=== PATIENT | male | born 1955 | race Caucasian/White ===

== ENCOUNTER 2024-01-27 11:06 | Day surgery (SDC) | payer MEDICARE, BC ==
[2024-01-26 16:56] VITALS: BMI 31.2
[2024-01-27] MEDS ORDERED: Ketorolac Tromethamine 30 MG (1 mL) VIAL ONE (11:32)
[2024-01-27] MEDS ORDERED: Sodium Chloride 0.9% 100 ML ONE (11:33)
[2024-01-27] MEDS ORDERED: Acetaminophen 500 MG TAB ONE (11:33)
[2024-01-27] MEDS ORDERED: CEFAZOLIN 2 GM VIAL ONE (11:33)
[2024-01-27] MEDS ORDERED: Acetaminophen 325 MG (10.15 ML) UDCUP ONE ×2 (11:40→11:41)
[2024-01-27] MEDS ORDERED: fentaNYL 50 mcg/mL 1 mL Vial ONE ×2 (12:32→13:42)
[2024-01-27] MEDS ORDERED: Lidocaine 2% PF 5 ML VIAL ONE (12:32)
[2024-01-27] MEDS ORDERED: PROPOFOL 20 ML ONE (12:32)
[2024-01-27] MEDS ORDERED: Bupivacaine 0.25% HCL 30 ML VIAL ONE (12:36)
[2024-01-27] MEDS ORDERED: EPINEPHrine 1 MG/ML VIAL ONE (12:36)
[2024-01-27] MEDS ORDERED: Ondansetron PF 4 MG/2 ML Vial ONE (13:51)
== END 2024-01-27 15:38 | disposition home or self-care (01) ==
LOC: SDC 11:06
PROVIDERS: ATTEND Specialist
PROC: 0H96X0Z Drainage of Back Skin with Drainage Device, External Approach (ICD-10-PCS; principal; 2024-01-27)
DX: T79.2XXA Traumatic secondary and recurrent hemorrhage and seroma, initial encounter (principal); W19.XXXA Unspecified fall, initial encounter
CPT/HCPCS: 10140; A6258; J0171; J3010; J0665; J1885; J2001; J2405; J2704; J3490

== ENCOUNTER 2024-02-12 13:54 | Outpatient (CLI) | payer MEDICARE, BC | END 2024-02-12 13:55 | disposition home or self-care (01) | LOC: CT 13:54 | PROVIDERS: ATTEND Surgery | DX: S22.018D Other fracture of first thoracic vertebra, subsequent encounter for fracture with routine healing (principal); S22.028D Other fracture of second thoracic vertebra, subsequent encounter for fracture with routine healing; S22.068D Other fracture of T7-T8 thoracic vertebra, subsequent encounter for fracture with routine healing; S24 Injury of nerves and spinal cord at thorax level | CPT/HCPCS: 72128 ==

== ENCOUNTER 2025-10-21 09:04 | Outpatient (CLI) | payer MEDICARE, BC | END 2025-10-21 09:05 | disposition home or self-care (01) | LOC: SCSMRI 09:04 | PROVIDERS: ATTEND Family Medicine | DX: S22.009A Unspecified fracture of unspecified thoracic vertebra, initial encounter for closed fracture (principal); M47.814 Spondylosis without myelopathy or radiculopathy, thoracic region | CPT/HCPCS: 72146 ==